=== PATIENT | male | born 1965 | race Caucasian/White ===

== ENCOUNTER → 2023-08-10 11:37 | Outpatient (REF) | payer OTHER, SELFPAY ==
[2023-08-10 13:35] LABS: Hepatitis C Antibody Negative (Negative)
[2023-08-13 02:12] LABS: HSV 1/2 Combined Screen, IgG >22.40 IV
[2023-08-13 07:10] LABS: HSV 2 Glycoprotein G Ab, IgG 0.04 IV (<=0.89)
[2023-08-14 16:36] LABS: Syphilis/T. pallidum Ab Reflex Negative (Negative)
== END ==
LOC: REG 11:37
PROVIDERS: ATTENDING PHYSICIAN Surgery
DX: R15.9 Full incontinence of feces (principal); B97.7 Papillomavirus as the cause of diseases classified elsewhere
CPT/HCPCS: 36415; 86694; 86695; 86696; 86780; 86803

== ENCOUNTER → 2023-09-07 17:13 | Outpatient (REF) | payer OTHER, SELFPAY ==
[2023-09-10 20:28] LABS: Aptima Media Type MultiTest Swab; Chlamydia trachomatis by TMA Negative (Negative); Neisseria gonorrhoeae by TMA Negative (Negative); Specimen Source Rectal
== END ==
LOC: CLAB 17:13
PROVIDERS: ATTENDING PHYSICIAN Surgery
DX: Z72.51 High risk heterosexual behavior (principal)
CPT/HCPCS: 87491; 87591

== ENCOUNTER → 2023-10-26 16:20 | Outpatient (REF) | payer OTHER, SELFPAY | LOC: CLAB 16:20 | PROVIDERS: ATTENDING PHYSICIAN Surgery | DX: K62.82 Dysplasia of anus (principal) | CPT/HCPCS: 88305 ==

== ENCOUNTER → 2024-03-14 03:45 | Outpatient (REF) | payer OTHER, SELFPAY | LOC: CLAB 03:45 | PROVIDERS: ATTENDING PHYSICIAN Surgery | DX: K62.89 Other specified diseases of anus and rectum (principal) | CPT/HCPCS: 87491; 87591 ==

== ENCOUNTER → 2024-04-08 06:22 | Day surgery (SDC) | payer OTHER, SELFPAY | LOC: GI 06:22 | PROVIDERS: ATTENDING PHYSICIAN Surgery | PROC: 0DJD8ZZ Inspection of Lower Intestinal Tract, Via Natural or Artificial Opening Endoscopic (ICD-10-PCS; 2024-04-08) | DX: K62.5 Hemorrhage of anus and rectum (principal) | CPT/HCPCS: 45378 ==

== ENCOUNTER 2024-09-29 06:26 | Day surgery (SDC) | payer OTHER, SELFPAY | END 2024-09-29 12:33 | disposition home or self-care (01) | LOC: GI 06:26 | PROVIDERS: ATTENDING PHYSICIAN Student in an Organized Health Care Education/Training Program | DX: R12 Heartburn (principal); K44.9 Diaphragmatic hernia without obstruction or gangrene; K25.9 Gastric ulcer, unspecified as acute or chronic, without hemorrhage or perforation; K22.89 Other specified disease of esophagus; K31.89 Other diseases of stomach and duodenum; K21.00 Gastro-esophageal reflux disease with esophagitis, without bleeding; K29.50 Unspecified chronic gastritis without bleeding; B96.81 Helicobacter pylori [H. pylori] as the cause of diseases classified elsewhere | CPT/HCPCS: 43239; 88305; 88342 ==

== ENCOUNTER → 2024-11-20 11:27 | Outpatient (REF) | payer OTHER, SELFPAY | LOC: CLAB 11:27 | PROVIDERS: ATTENDING PHYSICIAN Surgery | DX: R85.613 High grade squamous intraepithelial lesion on cytologic smear of anus (HGSIL) (principal) | CPT/HCPCS: 88305 ==

== ENCOUNTER 2024-12-29 06:20 | Day surgery (SDC) | payer OTHER, SELFPAY | END 2024-12-29 09:49 | disposition home or self-care (01) | LOC: GI 06:20 | PROVIDERS: ATTENDING PHYSICIAN Student in an Organized Health Care Education/Training Program | DX: R12 Heartburn (principal); K21.9 Gastro-esophageal reflux disease without esophagitis; K25.9 Gastric ulcer, unspecified as acute or chronic, without hemorrhage or perforation; K44.9 Diaphragmatic hernia without obstruction or gangrene; K29.50 Unspecified chronic gastritis without bleeding; B96.81 Helicobacter pylori [H. pylori] as the cause of diseases classified elsewhere | CPT/HCPCS: 43239; 88305; 88342 ==

== ENCOUNTER 2025-04-15 06:25 | Day surgery (SDC) | payer OTHER, SELFPAY ==
--- NOTE | 2025-04-14 11:50 | SUR.PHASEI ---
Rec'd sleepy on strtecher with HOB elevated mid fowlers in PACU oriented x 3 by RN, able to pronouce A and E, trach midline swallowing freely, no drooling noted
[2025-04-15] VITALS (7 sets, daily range): BP systolic 93–122; BP diastolic 58–92; BMI 24.7
[2025-04-15] MEDS: NORMOSOL-R/PLASMALYTE-A 1000 IV (09:10)
[2025-04-15] MEDS: TYLENOL 1000 MG PO (09:24)
[2025-04-15] MEDS: CELEBREX 200 MG PO (09:24)
--- NOTE | 2025-04-15 12:29 | W.IMMPOSTOP ---
Addendum entered and electronically signed by Alberto Cheng MD 04/15/25 14:57:
updated patient in recovery
Original Note:
Surgical Immed Post Op Note
-
Primary Surgeon: Alberto Cheng MD
Assisting Surgeon: None
Pre-op Diagnosis: Anal HSIL
Post-op Diagnosis: Anal HSIL, anal lesion
Procedure Performed: High-resolution anoscopy with biopsy and fulguration, transanal excision of anal lesion, bilateral pudendal nerve block
Anesthesia Type: Sedation with local
Specimen / Cultures:
1. Left lateral anal biopsy at SCJ
2. Left posterior/lateral mid anal canal biopsy
3. Left posterior/lateral appendage biopsy, mid anal canal
4. Right anterior/lateral proximal anal lesion
5. Anterior mid anal canal biopsy
6. Posterior mid anal canal biopsy
Estimated Blood Loss: 10 mL
Complications: None
Operative Findings: Per op note
--- NOTE | 2025-04-15 12:34 | OR.RPT ---
Operative Report
Operative Report
DATE OF OPERATION: 04/15/2025
SURGEON: Alberto Cheng MD
PREOPERATIVE DIAGNOSIS: Anal high-grade squamous intraepithelial lesion
POSTOPERATIVE DIAGNOSIS: Anal high-grade squamous intraepithelial lesion
OPERATION: Exam under anesthesia, high-resolution anoscopy, multiple anal biopsy and fulgration, transanal excision of anal lesion, bilateral pudendal nerve block
ASSISTANTS:
1. None
ANESTHESIA: Sedation with local
ESTIMATED BLOOD LOSS: 10 mL
FINDINGS:
1. Slightly elevated lesion noted in the left lateral position extending to posteriorly, extending from the SCJ toward the mid anal canal; 3 biopsies performed and lesion fulgurated
2. Right anterior/lateral elevated papillary lesion with easy friability, 1 cm in size; excised this in its entirety
3. Acetowhite with partial Lugol's negative lesion in the anterior mid anal canal, biopsied
4. Acetowhite with Lugol's negative lesion in the posterior mid-anal canal, biopsied and fulgurated
SPECIMENS:
1. Left lateral biopsy at squamocolumnar junction
2. Left posterior/lateral mid-anal canal biopsy
3. Left posterior/lateral appendage biopsy, mid-anal canal
4. Right anterior/lateral anal lesion
5. Anterior mid-anal canal biopsy
6. Posterior mid-anal canal biopsy
DRAINS: N/A
COMPLICATIONS: None
INDICATIONS: The patient is a 59-year-old male who has a history of MSM, on PrEP for HIV prophylaxis, and has been found to have anal HSIL on prior high-resolution anoscopies. On the most recent HRA, he was found to have 2 additional locations of
HSIL. There was also a spot noted in the right anterior anal canal that was concerning for papilla versus another lesion. Therefore, the patient was recommended to have high-resolution anoscopy with possible biopsy and fulguration. After
discussion with the patient, it was determined that performing the procedure with anesthesia would be better due to the extent of the disease as opposed to the office.
The operation was discussed with the patient in detail, including the risks, benefits and alternatives. Risks described included, but not limited to bleeding, infection, urinary retention, damage to nearby structures such as the anal sphincter,
fecal incontinence, anal stenosis, missed lesions, recurrence, progression to anal cancer despite monitoring and treatment and anesthetic risks. Additionally, I explained that I would be using the colposcope for the procedure in the left lateral
position. As this was my first time using this colposcope, if I was unable to get good visualization, I would switch to my usual approach with the laparoscopic camera on high-resolution and prone position. The patient understood and agreed to
proceed. The consent was signed and placed in the chart.
PROCEDURE IN DETAIL: The patient was taken to the operating room. The patient was placed in left lateral decubitus position on the stretcher. Sequential compression devices were placed bilaterally. Sedation was commenced without complication. A
seatbelt was placed over the mid chest. The buttocks were taped apart. The perineum was prepped and draped in the usual fashion. A time-out was performed verifying the correct patient, procedure, operative site, positioning, and special equipment.
Local anesthesia used was a mixture of 60 mL of 0.25% Marcaine with epinephrine and 0.6 mg of dexamethasone. 40 mL was injected perianally at the beginning of the case. The anorectal exam was performed using the plastic anoscope. Unfortunately, I
was unable to get good focus with the colposcope. I reached out to Dr. Hernandez. Unfortunately, she was unfamiliar with this colposcope as well. Therefore, I switched to my usual approach. The patient was placed on the operating room table in
prone position. The buttocks were taped apart. The patient was reprepped and draped in the usual fashion.
I placed a ray-markell soaked in 5% acetic acid within the anal canal and folded an external portion of it to cover the courtney-anal region. This was left in place for 3 minutes and then removed. The anal canal was again visualized with Hill-Sandra
retractors. Each quadrant was examined using the laparoscope on highest zoom, allowing for high-resolution. Lugol's 2% solution was swabbed on to each quadrant under direct visualization using high-resolution.
In the perianal area, there was no concerning acetowhite, Lugol's negative lesion so no biopsy was performed.
In the left lateral quadrant, there was a patch of acetowhite mucosa at the squamocolumnar junction that was Lugol's negative. This area extended a little distally and posteriorly. There was also slightly raised nodules or appendages, just a few
millimeters in size, closer to the mid anal canal and more left posterolateral. These were partially Lugol's negative. This area likely represented the focus of HSIL seen on the last high-resolution anoscopy. I performed a biopsy at the
squamocolumnar junction, as well as slightly more distal in the mid-anal canal. Lastly, I took a third biopsy of one of the nodular appendages. The patch of involved mucosa was then fulgurated with electrocautery and hemostasis was assured.
In the right lateral quadrant, there was a raised lesion, semisessile, with a papillary appearance. The lesion was not particularly hard, but certainly palpable. There was also a portion that was slightly friable with oozing. The lesion itself
was less than 1 cm, I would approximate to be about 8 to 9 mm. It was unclear to me if this represented an anal cancer or a precancerous lesion. I discussed options with my partner, Dr. Nation, over the phone and we both agreed that performing an
excision would be the best option. Using Cambodian forceps, I attempted to elevate the lesion. However, due to the weakness of the structure of the lesion and friability, the lesion crumbled and was removed in piecemeal fashion. I attempted to
obtain a margin by elevating the base and excising with the Metzenbaum scissors. However, this was difficult to confirm due to the piecemeal nature of the excision. Hemostasis was achieved with electrocautery.
In the anterior quadrant, there was one flat patch of acetowhite and Lugol's negative mucosa. This was biopsied with a forceps and Metzenbaum scissors. Hemostasis was achieved with electrocautery.
At this point, anesthesia noted that his sedation was becoming a little more difficult. Therefore, I injected the remainder of the 20 mL of local. 5 mL was injected bilaterally for a pudendal nerve block. 10 mL was injected around the surgical
site and perianally. This improved the sedation.
In the posterior quadrant, there was a small patch that appeared acetowhite and Lugol's negative. I suspected that this represented the area of HSIL biopsied on the last HRA. I performed a biopsy of this location and fulgurated it. Hemostasis was
assured.
The total area of the anal canal that was fulgurated was probably about 30% of the anal mucosa. Hemostasis was reassessed once more using the small Hill-Sandra and was confirmed. Surgicel was placed in the operative site prophylactically.
At this point, the procedure was complete. All needle, sponge and instrument counts were correct. The patient tolerated the procedure well and was transferred to the recovery room in stable condition with gauze dressing in place secured with silk
tape.
DICTATED BY: Alberto Chegn MD
[2025-04-15] MEDS: DILAUDID 0.5 MG IV (12:45)
[2025-04-15] MEDS: TORADOL 15 MG IV (12:47)
== END 2025-04-15 14:47 | disposition home or self-care (01) ==
LOC: SDS 06:25
PROVIDERS: ATTENDING PHYSICIAN Surgery
DX: R85.613 High grade squamous intraepithelial lesion on cytologic smear of anus (HGSIL) (principal); K62.89 Other specified diseases of anus and rectum; Z21 Asymptomatic human immunodeficiency virus [HIV] infection status; Z72.52 High risk homosexual behavior
CPT/HCPCS: 46615; 88305; 88341; 88342